=== PATIENT | female | born 1970 | race Caucasian/White ===

== ENCOUNTER 2018-09-20 11:38 | Emergency (ER) | payer BC, OTHER ==
[~2018-09-20] VITALS: Ht 170.2 cm; Wt 72.0 kg
[~2018-09-20 11:38] MED LIST: AZIT250T PO
[2018-09-20 11:40] VITALS: Ht 170.2 cm; Wt 72.0 kg
--- NOTE | 2018-09-20 12:02 | ERD ---
ER Documentation Chief Complaint Chief Complaint Anxiety attack at a checkup appointment in a doctors office HPI Patient is a years old female with PMHx of Emphysema and current everyday s moker presenting to the ED for SOB, difficulty breathing, and dizziness x few weeks. Patient was seen in her PCP office where she experienced a panic attack and was picked up by EMT. Patient was then referred by her PCP to go to the ER for CXR. Patient reports that she was feeling better by EMT evaluation. Patient currently denies all ROS stating that she has calmed down. Patient reports that she does not take her inhalers as she is scared of them. Patient states she smokes pack per day and admits to smoking 4 cigarettes a day within the last days. Patient was diagnosed with emphysema 2 years ago. Patient reports that she avoids medication as she is afraid that her recovering drug addict son might take her medications. ROS All systems reviewed and are negative except as per history of present illness. Medications Home Meds Active Scripts Azithromycin* (Zithromax*) 250 Mg Tablet, 250 MG PO .ZPACK DIRECTED, #6 TAB TAKE 500 MG (2 TABS) THE FIRST DAY THEN 250 MG (1 TAB) DAYS 2-5 Prov:CHRISTIANO VASQUEZ PA-C 09/20/18 Allergies Allergies: Coded Allergies: No Known Allergy (Unverified , 09/20/18) PMhx/Soc History of Surgery: No Anesthesia Reaction: No Hx Neurological Disorder: No Hx Respiratory Disorders: Yes Hx Cardiac Disorders: No Hx Psychiatric Problems: No Hx Miscellaneous Medical Probl: No Smoking Status: Current every day smoker FmHx Family history of Carcinoma. Physical Exam Vitals Vital Signs Date Temp Pulse Resp B/P (MAP) Pulse Ox O2 O2 Flow FiO2 Time Delivery Rate 09/20/18 87 18 110/78 100 Room Air 14:07 (89) 09/20/18 98.1 73 18 116/78 100 11:40 (91) Physical Exam Const: No acute distress Head: Atraumatic Resp: Clear to auscultation bilaterally Cardio: Regular rate and rhythm, no murmurs Abd: Soft, non tender, non distended. Normal bowel sounds Psych: Normal Mood and Affect Results 24 hrs Current Medications Medications Dose Sig/Krupa Start Time Status Last (Trade) Ordered Route PRN Stop Time Admin Dose Reason Admin Ceftriaxone 1 gm ONCE ONCE 09/20/18 DC 09/20/18 Sodium IM 13:30 09/20/18 13:29 (Rocephin) 13:31 Alprazolam 0.25 mg ONCE ONCE 09/20/18 DC 09/20/18 (Xanax) PO 13:30 09/20/18 13:29 13:31 Procedures/MDM Patient was seen and evaluated for shortness of breath and anxiety. EKG: Rate/Rhythm: Normal Sinus Rhythm QRS, ST, T-waves: No changes consistent w/ acute ischemia Impression: No evidence of ischemia or arrhythmia Chest x-ray revealed bilateral lung base atelectasis versus scarring. There is likely COPD. Rocephin 1 g IM and Xanax 0.25 mg p.o. administered in ED. patient is most likely experiencing atelectasis versus mild COPD exacerbation with overlying anxiety attack. Low suspicion for NC and sepsis. Patient is stable and ready for discharge. Follow-up with PCP. Patient was advised to take your inhaler as directed by her primary care. Patient was informed about differential health effects of continued smoking. Patient was advised about complications of emphysema/COPD. Patient discharged with Z-nini. Departure Diagnosis: Primary Impression: COPD (chronic obstructive pulmonary disease) COPD type: COPD with acute exacerbation Qualified Codes: J44.1 - Chronic obstructive pulmonary disease with (acute) exacerbation Condition: Stable Patient Instructions: Care for COPD Referrals: [facility] Additional Instructions: Patient advised to return to the ED immediately for new or worsening symptoms. Patient advised to follow up with primary care provider in the next 24-48 hours. Patient verbalized understanding and agrees with treatment plan and course of ac tion. If patient has no primary care they may follow up with [facility] [address] [place] [address] or [facility] [id number] [place] [address] or [facility] [address] [place] [address] CHRISTIANO VASQUEZ PA-C Sep 20, 2018 12:02
[2018-09-20] MEDS ORDERED: ALPRAZOLAM 0.25 MG TAB PO ONE (13:30)
[2018-09-20] MEDS ORDERED: CEFTRIAXONE 1 GM INJ IM ONE (13:30)
[2018-09-20 14:07] VITALS: BP 110/78; PULSE 87; RESP 18
== END 2018-09-20 14:09 | disposition home or self-care (01) ==
LOC: FTE 11:38
DX: J44.1 Chronic obstructive pulmonary disease with (acute) exacerbation (principal); F17.210 Nicotine dependence, cigarettes, uncomplicated
CPT/HCPCS: 71046; 96372; 99284; J0696; 93005